=== PATIENT | female | born 2000 | race Two or more races ===

== ENCOUNTER 2023-09-20 19:37 | Emergency (ER) | payer OTHER, MEDICAID ==
[~2023-09-20] VITALS: Ht 172.7 cm; Wt 78.0 kg
[2023-09-20 21:37] VITALS: BP 143/98; PULSE 99; RESP 18; O2SAT 99
== END 2023-09-20 20:34 | disposition left against medical advice (07) ==
LOC: ER 19:37
DX: R20.2 Paresthesia of skin (principal); Z53.21 Procedure and treatment not carried out due to patient leaving prior to being seen by health care provider

== ENCOUNTER 2025-07-01 11:22 | Observation (INO) | payer MEDICAID, OTHER ==
[2025-07-01] MEDS ORDERED: MICO1KIT6 VA (12:11)
[2025-07-01] MEDS ORDERED: ASPI-543 PO (12:11)
--- NOTE | 2025-07-01 13:17 | DVH ---
BIOPHYSICAL PROFILE HISTORY: LOF, karissa check, r/o accreta. TECHNIQUE: Multiple transabdominal real-time grayscale sonographic images through the gravid uterus of the fetus with duplex Doppler color flow and M-mode spectral analysis FINDINGS: Cephalic position. Posterior placenta location. heart rate is 150 beats per minute. MVP is 5.7 cm. Cervical length is 2.8 cm. No placenta abruption or previa. Cervix is closed. IMPRESSION: 1. No placenta previa or abruption.
--- NOTE | 2025-07-01 14:26 | DVHDS2 ---
Physician Discharge Progress N Final Diagnosis: twins cramping 24wks Operations or Procedures: Operations or Procedures nst ,sono Condition on Discharge: Good Disposition: Home Discharge Instructions: Diet: Regular Activity: No Restrictions, As Tolerated Medications: na Follow Up Care: Specialist: fu 1 day with ob selma Discharge Statement: "Patient was advised to return to the ER or call 911 if any headaches, dizziness, shortness of breath, chest pain, abdominal pain, bleeding, fevers, or worsening of medical condition. Patient was counseled about treatment plan, medications, possible side effects, patientverbalized understanding. All questions were answered to the best of my ability. This discharge took greater then 30 minutes in planning, reviewing documentation, counseling the patient, and discussing with other team members." Visit Coding OBGYN Date of Service: Jul 01, 2025 Billing Provider: ABBY JACKSON DO FOUNDRY OPERATOR Common Visit Codes: [id number] OBS CARE (HIGH) FOUNDRY OPERATOR Procedure Codes: 51441-84- NON-STRESS TEST ABBY JACKSON DO Jul 01, 2025 14:25
== END 2025-07-01 13:09 | disposition home or self-care (01) ==
LOC: LDRP 11:22
PROVIDERS: ADMIT Obstetrics & Gynecology; ATTEND Obstetrics & Gynecology
DX: O62.9 Abnormality of forces of labor, unspecified (principal); O30.002 Twin pregnancy, unspecified number of placenta and unspecified number of amniotic sacs, second trimester; Z3A.24 24 weeks gestation of pregnancy; Z79.899 Other long term (current) drug therapy; Z98.890 Other specified postprocedural states
CPT/HCPCS: 76815; 81002; 94760; A4649; G0378